=== PATIENT | male | born 1980 | race Caucasian/White ===

== ENCOUNTER 2019-08-02 03:50 | Observation (INO) ==
[2019-08-02 04:13] LABS: Basophils % 0.5 % (0.1-2.0); Eosinophils # 0.1 K/mm3 (0.0-0.4); Eosinophils % 1.8 % (0.1-12.0); Hematocrit 49.4 % (42.0-52.0); Hemoglobin 17.3 g/dL (14.1-18.0); Lymphocytes # 1.5 K/mm3 (0.7-4.5); Lymphocytes % 24.9 % (10-50); Monocytes # 0.5 K/mm3 (0.1-1.0); Monocytes % 8.8 % (1.7-9.3); Neutrophils # 3.7 K/mm3 (1.8-7.8); Neutrophils % 64.1 % (37.0-80.0); Platelet Count 195 K/mm3 (142-424); Red Blood Count 5.62 M/mm3 (4.60-6.20); Red Cell Distribution Width 12.1 % (11.5-17.5); White Blood Count 5.8 K/mm3 (4.8-10.8)
[2019-08-02 04:26] LABS: Albumin Level 4.1 gm/dL (3.4-5.0); Anion Gap 15.8 mEq/L (5-15); Bilirubin,Total 0.7 mg/dL (0.2-1.0); C-Reactive Protein 5.2 mg/dL (0.0-0.9); Calcium 8.9 mg/dL (8.5-10.1); Globulin 4.1 gm/dl (1.3-3.2); Total Protein,Serum 8.2 gm/dL (6.4-8.2)
[2019-08-02 04:49] LABS: Erythrocyte Sedimentation Rate 12 mm/hr (0-15)
[2019-08-02 05:23] LABS: Microscopic, Urine URINE MICROSCOPIC (MICROSCOPIC)
[2019-08-02 05:24] LABS: Appearance,Urine CLEAR (Clear); Blood, Urine Negative (Negative); Color,Urine YELLOW (Yellow); Glucose,Urine (UA) Negative (Negative); Ketones,Urine Negative (Negative); Leukocyte Esterase,Urine Negative (Negative); PH,Urine 5.5 (5.0-8.5); Protein,Urine TRACE (Negative); Specific Gravity, Urine >= 1.030 (1.005-1.030); Urobilinogen,Urine 0.2 EU/dl (0.2)
[2019-08-02 05:25] LABS: Bilirubin,Urine Negative (Negative)
[2019-08-02 05:35] LABS: Bacteria,Urine 1+ /lpf; Mucus,Urine 1+ /lpf; WBC,Urine Occasional #/hpf (0-3)
--- NOTE | 2019-08-02 05:37 | Emergency Department Note ---
ED Disposition Clinical Impression: SBO (small bowel obstruction) Disposition: Home, Self-Care Condition on Discharge: Good Referrals: Provider,Referral, [Primary Care Provider] - - Critical Care Critical Care Time: No Attestation: On 08/02/19, the high probability of a clinically significant, sudden or life threatening deterioration of the following system(s) required my full and direct attention, intervention and personal management. The time I documented below is in addition to time spent performing reported procedures but includes the following listed in this critical care notation. Medical Decision Making - Medical Records Medical records reviewed: Yes: I reviewed the patient's medical records. - Rosalio Inquiry Pt receiving controlled substance: No Vital Signs: 08/02/19 03:59 Temperature 97.9 F Temperature Source Oral Pulse Rate [Left Radial] 89 Respiratory Rate 20 Blood Pressure [Right Arm] 149/68 H Blood Pressure Mean [Right Arm] 95 Blood Pressure Source [Right Arm] Automatic Cuff Blood Pressure Position [Right Arm] Sitting 02 Sat by Pulse Oximetry 98 Oxygen Delivery Method Room Air - Lab Data Lab results reviewed: Yes: I reviewed the patient's lab results. Lab Results 08/02/19 04:06: WBC 5.8, RBC 5.62, Hgb 17.3, Hct 49.4, MCV 88.0, MCH 30.8, MCHC 35.0, RDW 12.1, Plt Count 195, MPV 8.0, Neut % (Auto) 64.1, Lymph % (Auto) 24.9, [place] % (Auto) 8.8, Eos % (Auto) 1.8, Baso % (Auto) 0.5, Neut # (Auto) 3.7, Lymph # (Auto) 1.5, [place] # (Auto) 0.5, Eos # (Auto) 0.1, Baso # (Auto) 0.0, ESR 12 08/02/19 04:06: Sodium 138, Potassium 3.8, Chloride 101, Carbon Dioxide 25, Anion Gap 15.8 H, BUN 13, Creatinine 1.19, Estimated Creat Clear 112, Estimated GFR 69, Est GFR ( Amer) 83, Glucose 103, Calcium 8.9, Total Bilirubin 0.7, AST 27, ALT 32, Alkaline Phosphatase 78, C-Reactive Protein 5.2 H, Total Protein 8.2, Albumin 4.1, Globulin 4.1 H, Albumin/Globulin Ratio 1.0 L, Amylase 76, Lipase 123 08/02/19 05:19: Urine Color Yellow, Urine Appearance Clear, Urine pH 5.5, Ur Specific [place] >= 1.030, Urine Protein Trace, Urine Glucose (UA) Negative, Urine Ketones Negative, Urine Blood Negative, Urine Nitrate Negative, Urine Bilirubin Negative, Urine Urobilinogen 0.2, Ur Leukocyte Esterase Negative, Urine WBC Occasional, Urine Bacteria 1+, Urine Mucus 1+ Result diagrams: 08/02/19 04:06 08/02/19 04:06 Orders (Tests/Meds): ED MEDICATIONS Generic Name Dose Route Start Last Admin Trade Name Freq PRN Reason Stop Dose Admin Sodium Chloride 500 mls @ 999 mls/hr 08/02/19 04:15 08/02/19 04:14 Sod Chlor 0.9% 1000ml Bag IV 08/02/19 04:45 Not Given .Q31M EB Sodium Chloride 1,000 mls @ 999 mls/hr 08/02/19 04:15 08/02/19 04:36 Sod Chlor 0.9% 1000ml Bag IV 08/02/19 05:15 999 mls/hr .Q1H1M EB Administration Discontinued Medications Generic Name Dose Route Start Last Admin Trade Name Freq PRN Reason Stop Dose Admin Ketorolac Tromethamine 30 mg 08/02/19 04:07 08/02/19 04:15 Toradol 30mg/Ml Vial IV 08/02/19 04:08 30 mg ONCE ONE Administration Ondansetron HCl 4 mg 08/02/19 04:06 08/02/19 04:15 Zofran 4mg/2ml Vial IV 08/02/19 04:07 4 mg ONCE ONE Administration ORDERS Category Date Time Status Diarrhea 23 Panel, PCR Stat Lab 08/02/19 04:05 Ordered - CT Data CT Scan: Abdomen, Pelvis Time Received: 05:[address] Reviewed: Yes: I have viewed the radiologist's interpretation Preliminary Findings: Abnormal (sbo) - Physician Consults Physician Consulted: redd Reason -: Admission General Adult HPI - General Chief complaint: PAIN Stated complaint: Stomach pain, lower back pain,diarrhea Time Seen by Provider: 08/02/19 04:30 Mode of Arrival: Ambulatory Source of Information: Patient, Medical Record Limitations: No Limitations Description of Symptoms (Recalled from ER Triage Doc. by RN): c/o abdominal cramps, diarrhea, nausea and mid back pain that started yesterday - History of Present Illness HPI narrative: upper abd pain with diarrhea and nausea over the last day Onset (ago): day(s) Severity: moderate Associated symptoms: denies other symptoms Treatments prior to arrival: none - Related Data Home Medications Medication Instructions Recorded Confirmed No Known Home Medications 08/02/19 08/02/19 Allergies Allergy/AdvReac Type Severity Reaction Status Date / Time Penicillins Allergy Verified 08/02/19 04:04 [facility] History - Hepatitis A Screen Drug use history?: No High risk sexual behaviors?: No History of sexually transmitted infection?: No Currently employed?: No Childcare worker?: No Do you have indoor plumbing?: Yes Do you have electricity?: Yes Attestation statement:: This patient has been screened for Hepatitis A risk factors. I have reviewed the patient's past medical history: Yes Medical History: Denies:: Diabetes Mellitus Type 1, Diabetes Mellitus Type 2 Laterality Cases: Bilateral: Myringotomy (Ear Tubes), Tonsillectomy - Social History Alcohol Intake: never Occupational Status: employed ROS Obtained: Yes All systems reviewed & no additional complaints - Constitutional Constitutional: Denies fever(s) - Eyes Eyes: Denies change in vision - ENT Ears, Nose, Mouth, and Throat: Denies sore throat - Cardiovascular Cardiovascular: Denies chest pain - Respiratory Respiratory: No cough - Gastrointestinal Gastrointestingal: Reports: as per HPI, abdominal pain, nausea, vomiting. Denies: diarrhea - Genitourinary Male Genitourinary: Denies hematuria - Musculoskeletal Musculoskeletal: Denies joint pain, Denies joint swelling - Integumentary/Breasts Skin/Breast: Denies rash - Neurologic Neurologic: Denies seizure-like activity Physical Exam - General General appearance: alert, in no apparent distress - Head Head exam: normocephalic - Eye Eye exam: Present: PERRL, EOMI - ENT ENT exam: Present: mucous membranes moist - Neck Neck exam: Present: trachea midline - Respiratory Respiratory exam: Present: normal lung sounds bilaterally. Absent: respiratory distress - Cardiovascular Cardiovascular exam: Present: regular rate - Abdominal Exam Abdominal exam: Present: soft, tenderness Abdominal tenderness: Present: epigastrium, moderate - Neurological Exam Neurological exam: Present: alert, oriented X3, CN II-XII intact - Psychiatric Psychiatric exam: Present: normal affect - Skin Skin exam: Absent: rash
--- NOTE | 2019-08-02 07:18 | Pharmacy Consult Notes ---
[facility] Pharmacy VTE Monitoring - Patient Demographics Admission date: 08/02/19 Report Date: 08/02/19 Time: 07:18 Allergies/Adverse Reactions: Patient Allergies Penicillins Allergy (Verified 08/02/19 04:04) Height: 1.83 m Weight: 92.986 kg Patient Problems: Current Active Problems SBO (small bowel obstruction) (Acute) - VTE Risk Labs: VTE Related Lab Results Hgb 17.3 g/dL (14.1-18.0) 08/02/19 04:06 Hct 49.4 % (42.0-52.0) 08/02/19 04:06 Plt Count 195 K/mm3 (142-424) 08/02/19 04:06 BUN 13 mg/dL (7-18) 08/02/19 04:06 Creatinine 1.19 mg/dL (0.70-1.30) 08/02/19 04:06 Estimated Creat Clear 112 mL/min (50-200) 08/02/19 04:06 Was VTE Risk Assessment Performed: Yes VTE Score: 2 VTE Risk Level: Very Low Risk Clinical Trial Participant: No - Prophylaxis VTE Prophylaxis Ordered?: Yes Types of VTE Prophylaxis: TEDS Knee High
--- NOTE | 2019-08-02 08:20 | History & Physical Report ---
*Admission Date: 08/02/19 *Chief complaint: Abdominal pain and diarrhea *History of present illness: Mr. Houser is a previously healthy 39 year-old white male. He states that over the past 2-3 days he has had multiple episodes of abdominal cramping and diarrhea with pain becoming most severe last night leading to his presentation to the ER. Preceding his symptoms he states his and son had similar symptoms including nausea and vomiting, which he denies and himself. On Thursday he began developing cramping abdominal pain becoming most severe and radiating to his back. Denies any blood in his stool. Denies any fevers. Was having multiple episodes of loose watery diarrhea daily. He had some minor nausea but no vomiting. He states he is passing minimal amounts of gas per rectum but belching quite often relieving some of his abdominal discomfort. His symptoms progressed yesterday and became more severe where he was uncomfortable lying supinely and he presented to the emergency department early this morning. His work-up included noncontrast CT scan which revealed some mildly dilated small bowel with air-fluid levels read as ileus versus obstruction. He was admitted for inpatient management and surgical consultation was obtained for bowel obstruction. On interview this afternoon, patient is hemodynamically stable, sitting upright in bedside chair. States he is gotten good relief from Toradol and morphine. No further diarrhea since taking Imodium yesterday. [facility] History I have reviewed the patient's past medical history: Yes Medical History: Denies:: Cancer, Diabetes Mellitus Type 1, Diabetes Mellitus Type 2, Internal Pacemaker, MRSA *Have you ever received a pneumonia vaccine?: No *Have you received a flu vaccine this season?: No Other Medical History: Reports: Arthritis (NECK) Laterality Cases: Bilateral: Myringotomy (Ear Tubes), Tonsillectomy Other Surgeries: No: Pacemaker Amputation: No Fractures: No - *Social History Educational Level: Completed High School Smoking Status: Never smoker Alcohol Intake: never *Occupational Status:: employed Housing: house Household Members: spouse *Travel in the last 8 weeks: None Family Hx:: No significant family history Review of Systems - Review of Systems Review of systems:: pertinent systems reviewed and negative unless documented below - *Neurologic Denies seizure-like activity Meds Home Medications Medication Instructions Recorded Confirmed Type No Known Home Medications 08/02/19 08/02/19 History Allergies Allergy/AdvReac Type Severity Reaction Status Date / Time Penicillins Allergy Verified 08/02/19 04:04 Exam Vital signs and Labs for Last 24 Hours: Temp Pulse Resp BP Pulse Ox 97.8 F 57 L 17 148/79 H 100 08/02/19 08:00 08/02/19 08:00 08/02/19 08:00 08/02/19 08:00 08/02/19 08:00 Laboratory Results - last 24 hr 08/02/19 04:06: WBC 5.8, RBC 5.62, Hgb 17.3, Hct 49.4, MCV 88.0, MCH 30.8, MCHC 35.0, RDW 12.1, Plt Count 195, MPV 8.0, Neut % (Auto) 64.1, Lymph % (Auto) 24.9, [place] % (Auto) 8.8, Eos % (Auto) 1.8, Baso % (Auto) 0.5, Neut # (Auto) 3.7, Lymph # (Auto) 1.5, [place] # (Auto) 0.5, Eos # (Auto) 0.1, Baso # (Auto) 0.0, ESR 12 08/02/19 04:06: Sodium 138, Potassium 3.8, Chloride 101, Carbon Dioxide 25, Anion Gap 15.8 H, BUN 13, Creatinine 1.19, Estimated Creat Clear 112, Estimated GFR 69, Est GFR ( Amer) 83, Glucose 103, Calcium 8.9, Total Bilirubin 0.7, AST 27, ALT 32, Alkaline Phosphatase 78, C-Reactive Protein 5.2 H, Total Protein 8.2, Albumin 4.1, Globulin 4.1 H, Albumin/Globulin Ratio 1.0 L, Amylase 76, Lipase 123 08/02/19 05:19: Urine Color Yellow, Urine Appearance Clear, Urine pH 5.5, Ur Specific [place] >= 1.030, Urine Protein Trace, Urine Glucose (UA) Negative, Urine Ketones Negative, Urine Blood Negative, Urine Nitrate Negative, Urine Bilirubin Negative, Urine Urobilinogen 0.2, Ur Leukocyte Esterase Negative, Urine WBC Occasional, Urine Bacteria 1+, Urine Mucus 1+ I & O for Last 24 hours: Intake & Output 07/30/19 07/31/19 08/01/19 08/02/19 23:59 23:59 23:59 23:59 Weight 92.986 kg - *Routine HEENT Exam Head: Present: normocephalic Eye: Present: EOMI, PERRL ENT: Present: mucous membranes moist - *Routine Neck Exam Present: supple. Absent: lymphadenopathy - *Routine Respiratory Exam Present: CTA bilaterally - *Routine Cardiovascular Exam Present: RRR - *Routine Abdominal Exam Present: soft, tenderness Comments: Diffuse tenderness, worst in left upper quadrant. Mild guarding, no rebound. No CVA tenderness however percussion of the back causes pain in left anterior abdomen; hypoactive Bowel sounds - *Routine Extremities Exam Absent: cyanosis, clubbing, edema - *Routine Skin Exam Present: warm. Absent: rash - *Routine Neurological Exam Present: alert, oriented X3 - Detailed Eye Exam Eyelids: Left normal inspection Assessment and Plan (1) Abdominal pain Current visit: Yes Status: Acute Category: Medical Code(s): R10.9 - Unspecified abdominal pain (2) SBO (small bowel obstruction) Current visit: Yes Status: Acute Category: Medical Code(s): K56.609 - Unspecified intestinal obstruction, unspecified as to partial versus complete obstruction - Assessment and plan all Dx Assessment and Plan for all problems:: Symptoms consistent with enteritis. Due to intractable pain on admission, will continue observation. Toradol for pain. Morphine conservatively with severe pain nonresponsive to Toradol. Stool sample pending. Slowly advance diet as he has had bowel rest overnight. Monitor for improvement. If tolerating p.o. intake tomorrow with improvement in symptoms, plan for discharge
--- NOTE | 2019-08-02 09:55 | Consult Report ---
*Admission Date: 08/02/19 *Reason for consult:: "Small bowel obstruction" *History of present illness: Patient is a very pleasant healthy 39-year-old white male. He states that over the past 72 hours he has had multiple family members that have had clinical gastroenteritis mostly characterized by diarrhea. On Thursday the 07/31/2019 he began developing cramping abdominal pain. He describes it as a knot. He had diarrhea.. He had some minor nausea but no vomiting. He has had some belching. His symptoms progressed yesterday and became more severe where he was uncomfortable lying supinely and he presented to the emergency department early this morning. His work-up included noncontrast CT scan which revealed some mildly dilated small bowel with air-fluid levels read as ileus versus obstruction. He was admitted for inpatient management and surgical consultation was obtained for bowel obstruction. Review of Systems - Review of Systems Review of systems:: pertinent systems reviewed and negative unless documented below - *Neurologic Denies seizure-like activity [facility] History I have reviewed the patient's past medical history: Yes Medical History: Denies:: Cancer, Diabetes Mellitus Type 1, Diabetes Mellitus Type 2, Internal Pacemaker, MRSA *Have you ever received a pneumonia vaccine?: No *Have you received a flu vaccine this season?: No Other Medical History: Reports: Arthritis (NECK) Laterality Cases: Bilateral: Myringotomy (Ear Tubes), Tonsillectomy Other Surgeries: No: Pacemaker Amputation: No Fractures: No - *Social History Educational Level: Completed High School Smoking Status: Never smoker Alcohol Intake: never *Occupational Status:: employed Housing: house Household Members: spouse *Travel in the last 8 weeks: None Family Hx:: No significant family history Meds Home Medications Medication Instructions Recorded Confirmed Type No Known Home Medications 08/02/19 08/02/19 History Allergies Allergy/AdvReac Type Severity Reaction Status Date / Time Penicillins Allergy Verified 08/02/19 04:04 Exam Vital signs and Labs for Last 24 Hours: Temp Pulse Resp BP Pulse Ox 97.8 F 57 L 17 148/79 H 100 08/02/19 08:00 08/02/19 08:00 08/02/19 08:00 08/02/19 08:00 08/02/19 08:00 Laboratory Results - last 24 hr 08/02/19 04:06: WBC 5.8, RBC 5.62, Hgb 17.3, Hct 49.4, MCV 88.0, MCH 30.8, MCHC 35.0, RDW 12.1, Plt Count 195, MPV 8.0, Neut % (Auto) 64.1, Lymph % (Auto) 24.9, [place] % (Auto) 8.8, Eos % (Auto) 1.8, Baso % (Auto) 0.5, Neut # (Auto) 3.7, Lymph # (Auto) 1.5, [place] # (Auto) 0.5, Eos # (Auto) 0.1, Baso # (Auto) 0.0, ESR 12 08/02/19 04:06: Sodium 138, Potassium 3.8, Chloride 101, Carbon Dioxide 25, Anion Gap 15.8 H, BUN 13, Creatinine 1.19, Estimated Creat Clear 112, Estimated GFR 69, Est GFR ( Amer) 83, Glucose 103, Calcium 8.9, Total Bilirubin 0.7, AST 27, ALT 32, Alkaline Phosphatase 78, C-Reactive Protein 5.2 H, Total Protein 8.2, Albumin 4.1, Globulin 4.1 H, Albumin/Globulin Ratio 1.0 L, Amylase 76, Lipase 123 08/02/19 05:19: Urine Color Yellow, Urine Appearance Clear, Urine pH 5.5, Ur Specific [place] >= 1.030, Urine Protein Trace, Urine Glucose (UA) Negative, Urine Ketones Negative, Urine Blood Negative, Urine Nitrate Negative, Urine Bilirubin Negative, Urine Urobilinogen 0.2, Ur Leukocyte Esterase Negative, Urine WBC Occasional, Urine Bacteria 1+, Urine Mucus 1+ I & O for Last 24 hours: Intake & Output 07/30/19 07/31/19 08/01/19 08/02/19 11:59 11:59 11:59 11:59 Weight 205 lb - *Routine HEENT Exam Head: Present: normocephalic Eye: Present: EOMI, PERRL ENT: Present: mucous membranes moist - *Routine Neck Exam Present: supple. Absent: lymphadenopathy - *Routine Respiratory Exam Present: CTA bilaterally - *Routine Cardiovascular Exam Present: RRR - *Routine Abdominal Exam Present: soft, normoactive bowel sounds, tenderness Comments: He has very minimal tenderness subjectively mostly in the left lower quadrant without guarding or rebound. - *Routine Extremities Exam Absent: cyanosis, clubbing, edema - *Routine Skin Exam Present: warm. Absent: rash - *Routine Neurological Exam Present: alert, oriented X3 - Detailed Eye Exam Eyelids: Left normal inspection Results - Labs 08/02/19 04:06 08/02/19 04:06 Laboratory Results - last 24 hr 08/02/19 04:06: WBC 5.8, RBC 5.62, Hgb 17.3, Hct 49.4, MCV 88.0, MCH 30.8, MCHC 35.0, RDW 12.1, Plt Count 195, MPV 8.0, Neut % (Auto) 64.1, Lymph % (Auto) 24.9, [place] % (Auto) 8.8, Eos % (Auto) 1.8, Baso % (Auto) 0.5, Neut # (Auto) 3.7, Lymph # (Auto) 1.5, [place] # (Auto) 0.5, Eos # (Auto) 0.1, Baso # (Auto) 0.0, ESR 12 08/02/19 04:06: Sodium 138, Potassium 3.8, Chloride 101, Carbon Dioxide 25, Anion Gap 15.8 H, BUN 13, Creatinine 1.19, Estimated Creat Clear 112, Estimated GFR 69, Est GFR ( Amer) 83, Glucose 103, Calcium 8.9, Total Bilirubin 0.7, AST 27, ALT 32, Alkaline Phosphatase 78, C-Reactive Protein 5.2 H, Total Protein 8.2, Albumin 4.1, Globulin 4.1 H, Albumin/Globulin Ratio 1.0 L, Amylase 76, Lipase 123 08/02/19 05:19: Urine Color Yellow, Urine Appearance Clear, Urine pH 5.5, Ur Specific [place] >= 1.030, Urine Protein Trace, Urine Glucose (UA) Negative, Urine Ketones Negative, Urine Blood Negative, Urine Nitrate Negative, Urine Bilirubin Negative, Urine Urobilinogen 0.2, Ur Leukocyte Esterase Negative, Urine WBC Occasional, Urine Bacteria 1+, Urine Mucus 1+ Assessment and Plan - Assessment and plan all Dx Assessment and Plan for all problems:: Clinical scenario seems most consistent with enteritis. At this point recommend expectant medical management. I will go ahead and give him a clear liquid diet. Agree with stool testing.
--- NOTE | 2019-08-03 08:47 | Discharge Summary ---
General - General Admission date:: 08/02/19 Discharge date: 08/03/19 HPI HPI: Mr. Houser is a previously healthy 39 year-old white male. He states that over the past 2-3 days he has had multiple episodes of abdominal cramping and diarrhea with pain becoming most severe last night leading to his presentation to the ER. Preceding his symptoms he states his and son had similar symptoms including nausea and vomiting, which he denies and himself. On Thursday he began developing cramping abdominal pain becoming most severe and radiating to his back. Denies any blood in his stool. Denies any fevers. Was having multiple episodes of loose watery diarrhea daily. He had some minor nausea but no vomiting. He states he is passing minimal amounts of gas per rectum but belching quite often relieving some of his abdominal discomfort. His symptoms progressed yesterday and became more severe where he was uncomfortable lying supinely and he presented to the emergency department early this morning. His work-up included noncontrast CT scan which revealed some mildly dilated small bowel with air-fluid levels read as ileus versus obstruction. He was admitted for inpatient management and surgical consultation was obtained for bowel obstruction. On interview this afternoon, patient is hemodynamically stable, sitting upright in bedside chair. States he is gotten good relief from Toradol and morphine. No further diarrhea since taking Imodium yesterday. Hospital Course Hospital Course: Patient was admitted to hospital. Hydrated. No electrolyte or blood count abnormalities were detected. Patient had no further diarrhea and felt better from pain standpoint. It was advanced to clear liquids. This morning is feeling better, wished to be discharged. Patient is improved and she will be discharged home, advance to low-fat diet. Follow-up in our office to establish care. Objective Vital signs: Temp Pulse Resp BP Pulse Ox 97.9 F 63 18 119/72 100 08/03/19 04:00 08/03/19 04:00 08/03/19 04:00 08/03/19 04:00 08/03/19 04:00 Narrative: Patient is pleasant, alert, no jaundice, no scleral icterus, cardiopulmonary exam unremarkable. Abdomen soft nontender. ENT exam clear. No JVD. No rash. Neurologically intact. DS: Diagnosis - Discharge Diagnosis (1) Abdominal pain Status: Resolved (2) SBO (small bowel obstruction) Status: Resolved Discharge Plan - Patient Discharge Instructions ACTIVITY: Continue current activity DIET: low fat, low cholesterol Patient Instructions: Acute Abdominal Pain, DI for Abdominal Pain-Adult - Follow up Plan Follow up with: Verenice Nelson APRN [Nurse Practitioner] - 08/06/19 Disposition: Home, Self-Senior Care Medications: Home Medications Medication Instructions Recorded Confirmed Type No Known Home Medications 08/02/19 08/02/19 History Prescriptions/Medication Reconciliation: No Action No Known Home Medications - Problem Reconciliation Problems Reviewed?: Yes
== END 2019-08-03 09:18 | disposition home or self-care (01) ==
LOC: ER 03:50 → INTOOBSV 05:59 → 2ND 05:59
PROVIDERS: ADMIT Family Medicine; ATTEND Internal Medicine Adolescent Medicine
DX: K56.609 Unspecified intestinal obstruction, unspecified as to partial versus complete obstruction
CPT/HCPCS: 74176; 80053; 81001; 82150; 83690; 85025; 85651; 86140; 96365; 96375; 99283; G0378; J2405

== ENCOUNTER → 2020-11-29 08:50 | Outpatient (CLI) | payer OTHER, SELFPAY ==
--- NOTE | 2020-11-29 08:50 | CT_ITS ---
PROCEDURE: CT ABDOMEN PELVIS W CON CLINICAL INDICATION: possible hernia Right lower abd/groin pain R/o hernia COMPARISON: CT CT ABDOMEN PELVIS WO CON from 08/02/2019 TECHNIQUE: IV Contrast: 75ML Isovue 370 Oral Contrast None Axial images obtained with sagittal and coronal reformats. All CT scans at the facility use one or more dose reduction, viz: automated exposure control, ma/kV adjustment per patient size (including targeted exams where dose is matched to indication, i.e. head), or iterative reconstruction technique. FINDINGS: LOWER THORAX: Trace bilateral effusions. ABDOMEN & PELVIS: Liver has an unremarkable appearance. There is some low level increased density in the posterior aspect of the gallbladder and could be related to stones and/or sludge. Gallbladder ultrasound may provide further evaluation. There is mild nonspecific thickening of the distal esophagus. Spleen, adrenal glands, pancreas, and kidneys have an unremarkable appearance. No evidence of appendicitis or diverticulitis. No pelvic mass or abnormal fluid collection. There are few punctate sclerotic foci within the hips and pelvis and may be due to small bone islands. No acute bony finding. No inguinal hernia apparent. No abdominal wall mass. IMPRESSION: 1. Trace bilateral effusions. 2. Possible gallbladder sludge and/or stones. 3. No evidence of inguinal hernia Dictated by: Terrell Foster MD 11/30/2020 10:48 Terrell Foster MD in [place] 11/30/2020 10:48
== END ==
PROVIDERS: PCP Internal Medicine Adolescent Medicine; Visit Provider Surgery
DX: R10.31 Right lower quadrant pain (principal)
CPT/HCPCS: 74177; Q9967

== ENCOUNTER → 2021-06-22 10:55 | Outpatient (CLI) | payer OTHER, SELFPAY ==
[2021-06-22 11:07] LABS: Basophils % 0.6 % (0.1-2.0); Eosinophils # 0.4 K/mm3 (0.0-0.4); Eosinophils % 4.9 % (0.1-12.0); Hematocrit 43.3 % (42.0-52.0); Hemoglobin 15.4 g/dL (14.1-18.0); Lymphocytes # 2.3 K/mm3 (0.7-4.5); Mean Corpuscular HGB Conc 35.7 g/dL (31.8-35.4); Mean Corpuscular Hemoglobin 30.6 pg (27.0-31.2); Mean Corpuscular Volume 85.8 fl (80-94); Mean Platelet Volume 7.9 fl (7.4-10.4); Monocytes # 0.4 K/mm3 (0.1-1.0); Neutrophils % 56.4 % (37.0-80.0); Platelet Count 196 K/mm3 (142-424); Red Blood Count 5.04 M/mm3 (4.60-6.20); Red Cell Distribution Width 12.9 % (11.5-17.5); White Blood Count 7.1 K/mm3 (4.8-10.8)
[2021-06-22 12:56] LABS: Blood Urea Nitrogen 14 mg/dl (9-20); Calcium 8.9 mg/dl (8.4-10.2); Carbon Dioxide 23 mmol/L (22.0-30.0); Chloride 108 mmol/L (98-107); Estimated Glomerular Filt Rate 83 ml/min (>60); GFR (African American) 101 ML/MIN (>60); Glucose 93 mg/dl (74-100); Sodium 143 mmol/L (136-145)
== END ==
PROVIDERS: Visit Provider Surgery
DX: Z01.812 Encounter for preprocedural laboratory examination (principal); K40.90 Unilateral inguinal hernia, without obstruction or gangrene, not specified as recurrent
CPT/HCPCS: 36415; 80048; 85025

== ENCOUNTER → 2021-06-24 07:39 | Outpatient (CLI) | payer OTHER, SELFPAY | PROVIDERS: Visit Provider Surgery | DX: Z01.812 Encounter for preprocedural laboratory examination (principal); Z11.52 Encounter for screening for COVID-19; K40.90 Unilateral inguinal hernia, without obstruction or gangrene, not specified as recurrent | CPT/HCPCS: U0003 ==

== ENCOUNTER 2021-06-25 08:19 | Day surgery (SDC) | payer OTHER, SELFPAY ==
[2021-06-21 08:44] VITALS: BMI 29.8
[2021-06-25] VITALS (12 sets, daily range): BP systolic 118–169; BP diastolic 61–87; PULSE 66–104; RESP 16–18; TEMP 36.1–37.1; O2SAT 95–99
--- NOTE | 2021-06-25 08:53 | P.PN_ITS ---
[facility] Anesthesia Checklist - Patient Identification Patient Identification: Arm Band - Structural Data Admitted From: Home Planned Operative Procedure/s: Right Open Inguinal Hernia Repair Consent for Planned Operative Procedure(s) Verified: Yes Verified Documents: Surgical Consent, History and Physical - NPO Status Verified Time NPO: 00:00 - Additional verifications Anesthesia Reactions: No Hx Blood Transfusions: No Blood Transfusion Reaction: No - Airway Assessment C-Spine Mobility Assessed: Yes (mp2) TMJ Mobility Assessed: Yes Dentition: Good Dentition - Neurological Assessment Level of Consciousness: Awake, Alert - Anesthesia Plan Anesthesia Risk discussed: Yes Anesthesia Plan: Verified ASA Class: II Anesthesia Type: General [facility] History I have reviewed the patient's past medical history: Yes Medical History: Reports:: Asthma Denies:: Cancer, Diabetes Mellitus Type 1, Diabetes Mellitus Type 2, Internal Pacemaker, MRSA, Seizures *Have you ever received a pneumonia vaccine?: No *Have you received a flu vaccine this season?: No Other Medical History: Reports: Arthritis. Denies: Blood Transfusion Reaction Anesthesia experience/problems:: nac Laterality Cases: Bilateral: Myringotomy (Ear Tubes), Tonsillectomy Other Surgeries: No: Pacemaker Amputation: No Fractures: No - *Social History Last grade of school completed: High school graduate Smoking Status: Never smoker Alcohol Intake: current Alcohol Intake Frequency:: holidays/special occasions only Substance Use Type: denies use *Occupational Status:: employed Housing: house Household Members: spouse *Travel in the last 8 weeks: None Family Hx:: No significant family history
--- NOTE | 2021-06-25 11:14 | HMH.OPNOTE ---
Date of procedure: 06/25/21 Pre-op Diagnosis:: Right inguinal hernia Post-op Diagnosis:: Same Procedure performed:: Open repair of right inguinal hernia Surgeon:: Perez Solis MD SPRAY WORKER:: Other Anesthesia: CLARITZA Estimated blood loss (mL): 20 Clinical Note:: Patient presents for right open inguinal hernia repair. I had initially seen him in November. He was a self-referral at that time for possible right groin hernia. At that time he had occasional right groin bulge which was intermittent. He had some increasing discomfort. It was worse when he stood for long periods of time. He also did have some change in his bowel habits. When I first saw him in the office I was unable to palpate any definite hernia and I therefore had him undergo CT scan which revealed no findings of any definite inguinal hernia. However, he describes classic symptoms and stated that he had to reduce the area when standing on his feet for long periods of time. He also describes some occasional numbness in the region of the ilioinguinal nerve with pain onto his right thigh. I had scheduled him for open right inguinal hernia repair. However, the patient had to cancel his surgery. Due to progressive symptoms he presents to the office to reschedule. He was recently seen in the office and had a rather large obvious right inguinal hernia at this time. There was no evidence of any hernia on the left. The options were discussed with the patient. He wished to pursue repair. Plan was made for open right inguinal hernia repair. Operative findings:: He had a moderately large indirect hernia. There is also some herniated fatty tissues within the internal ring and the cord nodule . Operative note:: Patient was taken to the operating room. He was positioned supine position. General anesthesia was induced. Pepper catheter was placed. Abdomen and perineum were prepped and draped in the standard surgical fashion. Oblique incision was made in the inguinal area superior to landmarks identifying the inguinal ligament. Dissection was carried down through subcutaneous tissues and Ashok's fascia. External oblique muscle was cleaned free. External oblique muscle was opened along the length of its fibers to the external ring. Underlying ilioinguinal nerve was clearly identified and preserved. Cord structures were dissected free from the floor the inguinal canal and encircled with a Fernando drain. He had a rather thickened cord. Dissection was carried out identifying the hernia sac. This was dissected free. It was open. Hernia sac was highly ligated with 2-0 Vicryl pursestring suture and excised. It was sent off as a specimen labeled hernia sac. There was also some herniated preperitoneal fatty tissues herniating through the internal ring. This was able to be reduced. There was a nodule of herniated tissue along the cord and this was dissected free and sent along with the hernia sac as a specimen. An extra-large Bard prefix mesh plug was inserted into the region of the internal ring and secured to the shelving edge of the inguinal ligament and to the transversalis fascia with several interrupted 2-0 PDS sutures. This closed the internal ring indirect hernia defect. The onlay mesh was then secured to Graeme's ligament and along the shelving edge of the inguinal ligament with a running 2-0 PDS suture. It was secured superiorly medially to the transversalis fascia with interrupted 2-0 PDS horizontal mattress sutures and several simple interrupted 2-0 PDS sutures. The 2 tails of the mesh were secured to 1 another with several interrupted 2-0 PDS sutures to reconstruct the internal ring. Local anesthetic was infiltrated. Cord structures and ilioinguinal nerve were returned to normal anatomic position. There was good hemostasis. External Bleich muscle was closed with a running 2-0 Vicryl suture. Ashok's fascia was closed with running 2-0 Vicryl. Skin was closed with 3-0 St
--- NOTE | 2021-06-25 11:23 | HMH.ANESI ---
[facility] Anesthesia Record Part I Intake, IV Amount: 1,000 Estimated blood loss (mL): 10 Urine output (mL): 30 Blood Products used (#): none Blood Pressure: 169/85 SaO2: 97 Pulse Rate: 104 Respiratory Rate: 18 Temperature: 97.7 F Patient is:: Awake Stable to PACU at:: 11:21
--- NOTE | 2021-06-25 13:35 | P.PN_ITS ---
[facility] Anesthesia Record Part II Discharge Time: 12:02 Destination: Surgical Day Care (OP Surgery) PACU nurse assessment reviewed?: Yes Patient Condition:: Good Anesthesia Complications:: None Swallowing reflex intact?: Yes Cyanosis?: No Blood Pressure: 131/73 Pulse Rate: 73 Temperature: 98.8 F Mental Status: Alert & Oriented Pain level:: 0 Nausea and/or vomitting:: None Intake, IV Amount: 50
[2021-06-25 13:36] LABS: Microscopic,Cath URINE MICROSCOPIC (MICROSCOPIC)
[2021-06-25 13:45] LABS: Appearance,Urine/Cath CLEAR (Clear); Bilirubin,Cath Negative (Negative); Blood, Urine/Cath Negative (Negative); Color,Urine/Cath YELLOW (Yellow); Glucose,Urine/Cath (UA) Negative (Negative); Ketones,Urine/Cath Negative (Negative); Leukocyte Esterase,Cath Negative (Negative); Nitrate,Cath Negative (Negative); Protein,Urine/Cath Negative (Negative); Specific Gravity, Urine/Cath 1.025 (1.005-1.030); Urobilinogen,Cath 0.2 EU/dl (0.2)
[2021-06-25 14:53] LABS: Bacteria,Urine/Cath TRACE /lpf; WBC,Urine/Cath Occasional #/hpf (0-3)
== END 2021-06-25 12:36 | disposition home or self-care (01) ==
LOC: OR 08:21
PROVIDERS: PCP Internal Medicine Adolescent Medicine; Visit Provider Surgery
PROC: (CPT 49505; principal; 2021-06-25 10:00)
DX: K40.90 Unilateral inguinal hernia, without obstruction or gangrene, not specified as recurrent (principal); J45.909 Unspecified asthma, uncomplicated
CPT/HCPCS: 49505; 81001; 96374; J2405